=== PATIENT | male | born 1985 | race Caucasian/White ===

== ENCOUNTER 2020-09-25 19:33 | Emergency (ER) | payer BC, OTHER ==
[2020-09-25] MEDS ORDERED: Lidocaine/EPINEPHrine/Tetracaine Soln 1 ML TOP ONE (19:43)
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
== END 2020-09-25 20:38 | disposition home or self-care (01) ==
LOC: JD.ED 19:33
DX: S01.112A Laceration without foreign body of left eyelid and periocular area, initial encounter (principal); W20.8XXA Other cause of strike by thrown, projected or falling object, initial encounter
CPT/HCPCS: 12011; 99282; 99282-25